=== PATIENT | male | born 1965 | race Caucasian/White ===

== ENCOUNTER 2020-03-30 09:37 | Emergency (ER) | payer BC, OTHER ==
--- NOTE | 2020-03-30 09:53 | EDM.PDOC ---
ED HPI GENERAL MEDICAL PROBLEM - General Chief Complaint: Cardiovascular Problem Stated Complaint: CHEST PAIN Time Seen by Provider: 03/30/20 09:52 - History of Present Illness INITIAL COMMENTS - FREE TEXT/NARRATIVE: 54-year-old male presents the emergency room with a 3 to 4-day history of right sided pleuritic type chest pain. This was preceded by some right leg swelling he thought initially was perhaps due to a bug bite but he had 2 sites that he had redness and swelling in his lower leg just below his knee this gradually did extend up his thigh and is improving, he noticed this a couple of weeks ago. Has a cough and at times it is pink to red streaked. The patient does not have any left-sided or substernal chest pain this chest pain does not radiate into her arms or into his neck. He has not had any diaphoresis nausea vomiting or other symptoms interestingly the patient has not noticed any shortness of breath the pain on the right side does get a little worse with deep breathing. - Related Data Allergies Allergy/AdvReac Type Severity Reaction Status Date / Time No Known Allergies Allergy Verified 03/30/20 09:51 Home Meds: Home Meds Rivaroxaban [Xarelto] 15 mg PO Q12H #42 tab 03/30/20 [Rx] ED ROS GENERAL - Review of Systems Review Of Systems: See Below Constitutional: Reports: No Symptoms HEENT: Reports: No Symptoms Respiratory: Reports: Cough, Sputum (Small amount), Hemoptysis. Denies: Shortness of Breath Cardiovascular: Reports: Chest Pain. Denies: Dyspnea on Exertion, Palpitations, Syncope Endocrine: Reports: No Symptoms GI/Abdominal: Reports: No Symptoms : Reports: No Symptoms Musculoskeletal: Reports: No Symptoms Skin: Reports: No Symptoms Neurological: Reports: No Symptoms Psychiatric: Reports: No Symptoms Hematologic/Lymphatic: Reports: No Symptoms Immunologic: Reports: No Symptoms ED EXAM, GENERAL - Physical Exam Exam: See Below Exam Limited By: No Limitations General Appearance: Alert, No Apparent Distress Head: Atraumatic, Normocephalic Neck: Normal Inspection, Supple, Non-Tender, Full Range of Motion, Other (No JVD noted). No: Lymphadenopathy (L), Lymphadenopathy (R) Respiratory/Chest: No Respiratory Distress, Lungs Clear, Normal Breath Sounds, No Accessory Muscle Use, Chest Non-Tender Cardiovascular: No Edema, Tachycardia (110 to 120s irregularly irregular), Irregularly Irregular GI/Abdominal: Normal Bowel Sounds, Soft, Non-Tender Back Exam: Normal Inspection. No: CVA Tenderness (L), CVA Tenderness (R) Extremities: Normal Inspection, No Pedal Edema, Other (Animal discomfort in the right leg the patient describes the pain is been much worse on the medial aspect of his knee and it follows the medial aspect of the thigh on up for started just below the knee most all of this has resolved) Psychiatric: Normal Affect, Normal Mood EKG INTERPRETATION EKG Date: 03/30/20 Rhythm: A-Fib Rate (Beats/Min): 124 [place]: Normal P-Wave: Absent QRS: Normal ST-T: Other (Septic nondiagnostic changes) QT: Normal Comparison: NA - No Prior EKG EKG Interpretation Comments: Normal EKG atrial fibrillation Course - Vital Signs Last Recorded V/S: Last Vital Signs Temp 36.1 C 03/30/20 09:46 Pulse 122 H 03/30/20 09:46 Resp 22 H 03/30/20 09:46 BP 121/82 03/30/20 09:46 Pulse Ox 97 03/30/20 09:46 - Orders/Labs/Meds Orders: Active Orders 24 hr Category Date Time Status EKG 12 Lead [EKG Documentation Completion] [RC] STAT Care 03/30/20 10:40 Active Labs: Laboratory Tests 03/30/20 03/30/20 03/30/20 Range/Units 09:45 09:45 09:45 WBC 9.50 H (4.23-9.07) K/mm3 RBC 5.27 (4.63-6.08) M/mm3 Hgb 16.8 (13.7-17.5) gm/dl Hct 50.0 (40.1-51.0) % MCV 94.9 H (79.0-92.2) fl MCH 31.9 (25.7-32.2) pg MCHC 33.6 (32.2-35.5) g/dl RDW Std Deviation 42.9 (35.1-43.9) fL Plt Count 319 (163-337) K/mm3 MPV 9.1 L (9.4-12.3) fl Neut % (Auto) 67.8 (34.0-67.9) % Lymph % (Auto) 18.9 L (21.8-53.1) % [place] % (Auto) 10.6 (5.3-12.2) % Eos % (Auto) 1.2 (0.8-7.0) Baso % (Auto) 1.1 (0.1-1.2) % Neut # (Auto) 6.44 H (1.78-5.38) K/mm3 Lymph # (Auto) 1.80 (1.32-3.57) K/mm3 [place]igg # (Auto) 1.01 H (0.30-0.82) K/mm3 Eos # (Auto) 0.11 (0.04-0.54) K/mm3 Baso # (Auto) 0.10 H (0.01-0.08) K/mm3 PT 10.4 (9.7-12.0) SECONDS INR 0.95 APTT 28 (22-31) SECONDS Sodium 141 (136-145) mEq/L Potassium 4.3 (3.5-5.1) mEq/L Chloride 102 (98-107) mEq/L Carbon Dioxide 30 (21-32) mEq/L Anion Gap 13.3 (5-15) BUN 22 H (7-18) mg/dL Creatinine 1.5 H (0.7-1.3) mg/dL Est Cr Clr Drug Dosing 59.26 mL/min Estimated GFR (MDRD) 49 (>60) mL/min BUN/Creatinine Ratio 14.7 (14-18) Glucose 101 (74-106) mg/dL Calcium 9.7 (8.5-10.1) mg/dL Total Bilirubin 0.7 (0.2-1.0) mg/dL AST 16 (15-37) U/L ALT 13 L (16-63) U/L Alkaline Phosphatase 135 H (46-116) U/L Troponin I < 0.017 (0.00-0.056) ng/mL Total Protein 8.0 (6.4-8.2) g/dl Albumin 3.4 (3.4-5.0) g/dl Globulin 4.6 gm/dL Albumin/Globulin Ratio 0.7 L (1-2) Meds: Medications Discontinued Medications Generic Name Dose Route Start Last Admin Trade Name Freq PRN Reason Stop Dose Admin Sodium Chloride 500 mls @ 999 mls/hr 03/30/20 10:06 03/30/20 10:21 Normal Saline IV 03/30/20 10:36 999 mls/hr .BOLUS ONE Administration Sodium Chloride 45 mls @ 40 mls/hr 03/30/20 10:15 03/30/20 11:22 Normal Saline IV 40 mls/hr ASDIRECTED MELISSA Administration Iopamidol 100 ml 03/30/20 10:07 03/30/20 11:21 Isovue-370 (76%) IVPUSH 03/30/20 10:08 100 ml ONETIME ONE Administration Sodium Chloride 20 ml 03/30/20 10:07 03/30/20 12:13 Normal Saline IARTIC 03/30/20 10:08 Not Given ONETIME ONE - Re-Assessments/Exams Free Text/Narrative Re-Assessment/Exam: 03/30/20 10:15 Couple of issues going on here he has what appears to be atrial fibrillation no history of hypertension diabetes hyperlipidemia or other underlying medical problems. He has this history of right leg swelling now followed by some pleuritic right chest pain with associated hemoptysis. He has new onset A. fib onset date not entirely clear. And this is been asymptomatic for him he came in with right-sided chest pain no palpitations shortness of breath or other symptoms we will work him up for cardiac etiologies and possible PE. We will not address the A. fib at this point as he seems to be doing okay his blood pressure at present is 103/88 pulse 109 he will get a fluid bolus before the CTA and will see if this does anything. EKG does not show any obvious ischemic changes but is indeed A. fib Free Text/Narrative Re-Assessment/Exam: 03/30/20 14:[address] chest and it did reveal right lower lobe pulmonary embolism and there is some suspected associated right heart strain with a small right pleural effusion and some compression atelectasis versus small pulmonary infarcts in the right lower lobe as well. I did discuss this with the patient, will be started on Xarelto with regards to the atrial fibrillation. The patient will be started on Xarelto the patient's ventricular rate is a little faster than normal however this could be due to the PE. The patient's blood pressure is at the low side of normal systolic around 110 and I do not want to compromise this. The patient is encouraged to follow- up with her regular provider soon for recheck and he will need to have the Xarelto changed to 20 mg once a day after he is done with the 15 mg twice a day for 3-week course. Departure - Departure Time of Disposition: 14:09 Disposition: Home, Self-Care 01 Clinical Impression: Pulmonary embolus, right, Atrial fibrillation Prescriptions: Rivaroxaban [Xarelto] 15 mg PO Q12H #42 tab Instructions: Pulmonary Embolism Referrals: PCP,None [Primary Care Provider] - Forms: ED Department Discharge Additional Instructions: Return to the emergency room with any questions problems or worsening symptoms. Follow-up in the hospital clinic in 1 week for recheck call Wednesday their phone number is [phone] You have been started on Xarelto this is a blood thinner you have been given 15 mg to take twice daily for 3 weeks and then you should be started on 20 mg daily thereafter. Sepsis Event Note (ED) - Evaluation Sepsis Screening Result: No Definite Risk - Focused Exam Vital Signs: Vital Signs Temp Pulse Resp BP Pulse Ox 03/30/20 09:46 36.1 C 122 H 22 H 121/82 97 - My Orders Last 24 Hours: My Active Orders 03/30/20 10:40 EKG 12 Lead [EKG Documentation Completion] [RC] STAT - Assessment/Plan Last 24 Hours: My Active Orders 03/30/20 10:40 EKG 12 Lead [EKG Documentation Completion] [RC] STAT
[2020-03-30] MEDS ORDERED: Sodium Chloride 0.9% 500 ML IV ONE (10:06)
[2020-03-30] MEDS ORDERED: Sodium Chloride 0.9% 10 ML SDV IARTIC ONE (10:07)
[2020-03-30] MEDS ORDERED: Iopamidol 755 Mg/ML 100 ML Bottle IVPUSH ONE (10:07)
[2020-03-30] MEDS ORDERED: Sodium Chloride 0.9% 45 ML IV SCH (10:15)
--- NOTE | 2020-03-30 13:35 | CT ---
CT chest Technique: Multiple axial sections through the chest were obtained. Intravenous contrast was utilized. Study performed as a pulmonary angiogram protocol. Findings: Numerous pulmonary emboli are seen within the segmental and subsegmental branches of both lower lobes. Mediastinum and hilar region show no adenopathy. Aorta shows mild atherosclerotic calcification without aneurysm. Small right-sided pleural effusion is noted. Small subpleural blebs noted within both lung apices. Parenchymal density is noted within the right lung base either due to atelectasis or developing pulmonary infarct. No other acute parenchymal change is seen. Minimal nodules are seen within both upper lungs. Visualized upper abdominal structures shows no discrete abnormality. Impression: 1. Multiple pulmonary emboli within the segmental and subsegmental branches of both lower lobes. 2. Small right-sided pleural effusion with mild right basilar parenchymal density. Parenchymal density either due to atelectasis or developing pulmonary infarct. 3. Multiple small pulmonary nodules. I believe that these are most likely incidental. Diagnostic code #5 This report was dictated in MDT I agree with preliminary report from mami, finalized on 03/30/20, 1:07 PM Central Daylight Time
== END 2020-03-30 14:25 | disposition home or self-care (01) ==
LOC: JD.ED 09:37
DX: I26.99 Other pulmonary embolism without acute cor pulmonale (principal); I48.91 Unspecified atrial fibrillation; Z79.01 Long term (current) use of anticoagulants
CPT/HCPCS: 36415; 71275; 80053; 84484; 85025; 85610; 85730; 93005; 99284; J7030; J7050; Q9967; 93010